=== PATIENT | female | born 1980 ===

== ENCOUNTER 2017-12-27 08:58 | Inpatient (IN) | payer OTHER ==
[~2017-12-27 08:58] MED LIST: Buffered Lidocaine 0.9% SYRIN* 5 ML/SYR SYRINGE INTRADERM ONE; Famotidine IV* 10 MG/ML 2 ML (20 mg) IV ONE; Sodium Citrate/Citric Acid* 15 ML UDC PO ONE
[2017-12-27] MEDS ORDERED: Morphine PF AMP (0.5MG/ML)* 5 MG/10 ML AMP ONE (10:37)
[2017-12-27] MEDS ORDERED: fentaNYL* 50 MCG/ML 2 ML VIAL (100 MCG VIAL) ONE (10:37)
[2017-12-27] MEDS ORDERED: Lidocaine 2% PF* 10 ML AMP ONE (10:38)
[2017-12-27] MEDS ORDERED: Bupivacaine-MPF SPINAL* 7.5 MG/ML - 2ML AMP ONE (10:38)
[2017-12-27] MEDS ORDERED: Ondansetron INJ* 2 MG/ML VIAL ONE (10:46)
[2017-12-27] MEDS ORDERED: ceFAZolin 2 GM in NS PREMIX(*) 2 GM/100 ML BAG IVPB ONE (11:00)
[2017-12-27] MEDS ORDERED: Oxytocin in LR* 20 UNITS/1,000 ML BAG IVPB ONE (11:03)
[2017-12-27] MEDS ORDERED: diPHENhydraMINE IV* 50 MG/ML 1 ml VIAL (BENADRYL) IV PRN (12:27)
[2017-12-27] MEDS ORDERED: oxyCODONE TAB* 5 MG TAB PO PRN (12:27)
[2017-12-27] MEDS ORDERED: Naloxone* 0.4 MG/ML 1 ML VIAL IV PRN (12:27)
[2017-12-27] MEDS ORDERED: Ondansetron INJ* 2 MG/ML VIAL IV PRN (12:27)
[2017-12-27] MEDS ORDERED: Metoclopramide IV* 5 MG/ML 2 ML VIAL IV PRN (12:27)
[2017-12-27] MEDS ORDERED: Acetaminophen TAB* 325 MG PO PRN ×2 (12:27→12:48)
[2017-12-27] MEDS ORDERED: oxyCODONE/Acetamin 5/325 MG* TAB PO PRN (12:27)
[2017-12-27] MEDS ORDERED: Witch Hazel PAD* JAR TOPICAL PRN (12:48)
[2017-12-27] MEDS: Ketorolac INJ* 30 MG/ML 1 ML VIAL IV PRN (14:22)
[2017-12-27] MEDS: Simethicone TAB* 80 MG TAB.CHEW PO SCH ×2 (17:12→21:39)
[2017-12-27] MEDS: Docusate CAP* 100 MG PO SCH ×2 (17:25→21:39)
[2017-12-28] MEDS ORDERED: oxyCODONE/Acetamin 5/325 MG* TAB PO PRN ×2 (04:27)
[2017-12-28] MEDS: Ketorolac INJ* 30 MG/ML 1 ML VIAL IV PRN (05:21)
[2017-12-28 06:53] LABS: ABS Basophils 0 10^3/ul (0-0.2); ABS Eosinophils 0 10^3/ul (0-0.6); ABS Monocytes 0.6 10^3/ul (0-0.8); ABS Neutrophils 6.8 10^3/ul (1.5-7.7); ABS Nucleated RBC 0 10^3/ul; Eosinophil % 0.3 % (0-6); Hematocrit 31 % (35-47); Hemoglobin 10.5 g/dl (12.0-16.0); Mean Corpuscular HGB Conc 34 g/dl (31-36); Mean Corpuscular Hemoglobin 31 pg (27-31); Mean Corpuscular Volume 91 fL (80-97); Mean Platelet Volume 7.3 um3 (7.4-10.4); Nucleated Red Blood Cells % 0; Platelet Count 140 10^3/ul (150-450); Red Cell Distribution Width 14 % (10.5-15); White Blood Count 8.5 10^3/ul (3.5-10.8)
[2017-12-28] MEDS ORDERED: Ferrous Gluconate TAB* 324 MG TAB PO SCH (09:00)
[2017-12-28] MEDS: Docusate CAP* 100 MG PO SCH ×3 (09:51→20:05)
[2017-12-28] MEDS: Simethicone TAB* 80 MG TAB.CHEW PO SCH ×3 (09:51→20:05)
[2017-12-28] MEDS: Ibuprofen TAB* 600 MG PO PRN ×2 (14:29→20:05)
--- NOTE | 2017-12-28 20:47 | OP ---
DATE OF OPERATION: 12/27/17 - ROOM #115 DATE OF : 84 SURGEON: Fidelia Hartley MD NAIL STICKER: Erlin Jo CNM PRE-OP DIAGNOSES: 1. Intrauterine gestation at 40 weeks' gestational age. 2. Prior section. POST-OP DIAGNOSES: 1. Intrauterine gestation at 40 weeks' gestational age. 2. Prior section. OPERATIVE PROCEDURE: Repeat low-transverse section. ESTIMATED BLOOD LOSS: 600 mL. FLUIDS: Crystalloid. DRAINS: Duarte catheter. FINDINGS: Male . Weight was 9 pounds 2 ounces. Apgars were 9 and 9. Normal appearing placenta. Normal uterus, ovaries, and tubes. COMPLICATIONS: None. COUNTS: All correct. DESCRIPTION OF PROCEDURE: After informed consent was signed, the patient was taken to the operating room where she was given a spinal anesthesia that was found to be adequate. She was prepped and draped in the dorsal supine position with a leftward tilt. Pfannenstiel skin incision was made with the scalpel and carried down to the underlying layer of fascia with a combination of sharp and blunt dissection. The fascia was incised on either side of the midline and the fascial incision was extended laterally with sharp dissection. The inferior edge of the fascial incision was grasped with Gail clamps, tented up, and dissected down sharply. Then the superior edge of the fascial incision was grasped with Gail clamps, tented up, and dissected down with sharp dissection. The rectus muscles were in the midline and the peritoneum was entered bluntly. The peritoneal incision was extended laterally with blunt pressure. Bladder blade was inserted and a transverse incision was made in the lower uterine segment with the scalpel. The incision was extended superiorly and inferiorly with blunt pressure. The 's head was then delivered followed by the shoulders and the rest of the body. The cord was milked towards the baby, clamped x2, and cut and the baby was handed to the ticket machine operator. Cord blood was collected, the placenta delivered with fundal massage and gentle cord traction. The uterus was exteriorized and cleared of clots and debris. The uterine incision was then closed with 0 Vicryl in a running locked fashion with the second layer of suture imbricating the first. The abdomen was irrigated and the uterus was then placed back into the abdominal cavity. The incision was inspected and good hemostasis was noted along the length of the incision. The peritoneum was then closed with 3-0 Vicryl in a running unlocked fashion. The fascia was closed with 0 Vicryl in a running unlocked fashion and the skin was closed with 4-0 Monocryl in a running subcuticular fashion. Mastisol and Steri-Strips were placed. A dressing was placed. The patient was cleaned, moved to the stretcher, and taken to the recovery room in stable condition. [id number] #: [id number] MTDD
[2017-12-29] MEDS: Ibuprofen TAB* 600 MG PO PRN ×3 (04:05→20:01)
[2017-12-29] MEDS: Docusate CAP* 100 MG PO SCH ×3 (10:47→20:01)
[2017-12-29] MEDS: Simethicone TAB* 80 MG TAB.CHEW PO SCH ×4 (10:48→20:01)
[2017-12-29] MEDS ORDERED: Measles, Mumps,Rubella VACC* 0.5 ML/VIAL SUBCUT ONE (18:28)
[2017-12-30] MEDS: Ibuprofen TAB* 600 MG PO PRN ×2 (04:38→11:39)
[2017-12-30 07:51] VITALS: BP 103/64
[2017-12-30] MEDS: Docusate CAP* 100 MG PO SCH (10:20)
[2017-12-30] MEDS: Simethicone TAB* 80 MG TAB.CHEW PO SCH (10:21)
== END 2017-12-30 11:44 | disposition home or self-care (01) | DRG 540 ==
LOC: MCHOB 08:58
PROVIDERS: ADMIT Obstetrics & Gynecology; ATTEND Obstetrics & Gynecology
PROC: 4A1HXCZ Monitoring of Products of Conception, Cardiac Rate, External Approach (ICD-10-PCS; 2017-12-27)
PROC: 10D00Z1 Extraction of Products of Conception, Low, Open Approach (ICD-10-PCS; principal; 2017-12-27 11:00)
DX: O34.211 Maternal care for low transverse scar from previous cesarean delivery (principal); Z91.018 Allergy to other foods; Z87.891 Personal history of nicotine dependence; Z3A.40 40 weeks gestation of pregnancy; Z37.0 Single live birth
CPT/HCPCS: 36415; 85025; A9270-GY; J0690; J1885; J2001; J2405; J3010